=== PATIENT | female | born 1980 | race Caucasian/White ===

== ENCOUNTER 2016-06-14 14:06 | Emergency (ER) ==
[2016-06-14 14:18] VITALS: BP 160/96
[2016-06-14 14:28] LABS: URINE CULTURE PL NEEDED? NO; URINE SOURCE CLEAN CATCH
[2016-06-14 14:46] LABS: MANUAL DIFF NEEDED? NO
[2016-06-14 14:46] LABS: BILIRUBIN URINE NEGATIVE (NEGATIVE); BLOOD URINE 1+ (NEGATIVE); CLARITY SL. CLOUDY (CLEAR); COLOR YELLOW; GLUCOSE URINE NEGATIVE (NEGATIVE); LEUKOCYTES URINE TRACE (NEGATIVE); NITRITE URINE NEGATIVE (NEGATIVE); PROTEIN URINE TRACE mg/dL (NEGATIVE); SP GRAVITY URINE 1.005; UROBILINOGEN URINE NORMAL
[2016-06-14 14:49] LABS: URINE EPITHELIAL CELLS <10 /HPF (<10); URINE RBC <10 /HPF (<10); URINE WBC <10 /HPF (<10)
[2016-06-14 14:54] LABS: BASO% 0.1 % (0.0-0.8); EOS# 0.03 X1000 (0.0-0.7); EOS% 0.4 % (0.0-10.0); HEMATOCRIT 38.3 % (37.0-47.0); HEMOGLOBIN 13.2 g/dL (12.0-16.0); IMM GRAN# 0.02 X1000 (0.0-0.04); IMM GRAN% 0.3 % (0.0-0.5); LYMPH# 1.85 X1000 (1.2-3.4); LYMPH% 24.7 % (20.5-51.1); MCH 28.3 PG (27-31); MCHC 34.5 g/dL (33-37); MCV 82.2 FL (81-99); MONO# 0.69 X1000 (0.11-0.59); MONO% 9.2 % (1.7-9.3); MPV 9.1 FL (7.4-10.4); NEUT% 65.3 % (42.2-75.2); PLT 293 X1000 (130-400); RBC 4.66 XMIL (4.2-5.4)
[2016-06-14 15:01] LABS: AGAP 8; ALKALINE PHOSPHATASE 85 U/L (32-104); BUN 8 mg/dL (8-22); CALCIUM 9.6 mg/dL (8.8-10.2); CHLORIDE 104 mmol/L (98-107); COSMO 272; GOT 40 U/L (10-30); GPT 40 U/L (10-36); POTASSIUM 3.4 mmol/L (3.5-5.1); SODIUM 137 mmol/L (136-145); TCO2 25 mmol/L (25-35); TOTAL PROTEIN 6.7 g/dL (6.3-8.3)
--- NOTE | 2016-06-14 15:58 | PROVIDER DOCUMENTATION ---
HPI-Abdominal Pain/GI Problem - General Source: patient - History of Present Illness-ABD Nature of Presenting Problems: 35 yo F presents to the ER with complaint of RLQ abdominal pain, n/v, fever, and dysuria onset of this morning. Abdominal Pain Onset Location: reports: RLQ Onset/Duration: reports: this morning Associated Symptoms: reports: nausea, vomiting. denies: diarrhea <AshlyCira - Last Filed: 06/14/16 17:21> - History of Present Illness-ABD Nature of Presenting Problems: She c/o periumbilical pain with radiation into RLQ. This is the exact same complaint as in March and she had a CT scan that was negative. She did not her GI doctor after that visit. She sees a GI doctor in [place] but has recently moved here. Abdominal Pain Onset Location: reports: periumbilical Pain Radiation: reports: RLQ Quality of Pain: reports: aching, sharp, stabbing Severity in ED: reports: moderate Onset/Duration: reports: 3 days ago Timing: reports: still present Activities at Onset: reports: none Exposure to sick contacts?: No Associated Symptoms: reports: nausea Last BM: this morning Rectal Bleeding: reports: none # of Diarrhea Episodes: 0 Emesis Description: reports: none Bruising or Bleeding Gums?: No Similar Symptoms Previously?: Yes Recently seen or treated by another doctor?: No <Kassie Vera - Last Filed: 06/14/16 17:52> - General Chief Complaint: Abdominal Pain Stated Complaint: LOWER ABD PAIN,FEVER Time Seen by Provider: 06/14/16 17:08 Allergies/Adverse Reactions: Patient Allergies Allergy/AdvReac Type Severity Reaction Status Date / Time levofloxacin [From Levaquin] Allergy Severe RASH Verified 05/27/16 09:39 Home Medications: Home Medication List Medication Instructions Recorded Confirmed Last Taken Type Mesalamine [Pentasa] 1,000 mg PO 4XDAY 05/31/15 05/27/16 05/27/16 History Paroxetine HCl [Paxil] 40 mg PO DAILY 03/23/16 05/27/16 05/27/16 History Quetiapine Fumarate [Seroquel] 300 mg PO QHS 03/23/16 05/27/16 05/27/16 History Acetaminophen/Diphenhydramine 1 each PO Q6-8H PRN PRN #30 tablet 05/27/16 Unknown Rx [Percogesic 325-12.5 mg Tablet] Amoxicillin [Amoxil] 500 mg PO BID #10 capsule 05/27/16 Unknown Rx Benzocaine 20% Gel [Orajel Maximum 1 applicatn TOP 4XDAY PRN PRN #1 05/27/[address] 20% Gel] tube Acetaminophen with Codeine 1 each PO Q6H PRN PRN #12 tablet 06/14/16 Unknown Rx [Tylenol with Codeine #3] Ondansetron [Zofran] 4 mg PO Q6H PRN PRN #15 tablet 06/14/16 Unknown Rx Review of Systems - Adult - REVIEW OF SYSTEMS - ADULT Constitutional: reports: chills, fever Eyes: reports: no symptoms reported Ears, Nose, Mouth & Throat: reports: no symptoms reported Cardiovascular: denies: chest pain, palpitations Respiratory: denies: cough, shortness of breath Gastrointestinal: reports: abdominal pain, nausea, vomiting. denies: diarrhea Genitourinary: reports: dysuria. denies: flank pain Musculoskeletal: reports: no symptoms reported Integumentary: reports: no symptoms reported Neurological: reports: no symptoms reported Psychiatric: reports: no symptoms reported Endocrine: reports: no symptoms reported Hematologic/Lymphatic: reports: no symptoms reported Allergic/Immunologic: reports: no symptoms reported All Other Systems: Reviewed and Negative <Cira Limon - Last Filed: 06/14/16 17:21> Past History - Adult - PAST MEDICAL HISTORY-ADULT Review of Records: reports: Nursing Assessment Review, Medications Reviewed Cardiovascular: reports: HTN, other (irregular heart beat) Gastrointestinal: reports: Crohn's Neurological: reports: headaches/migraines - PRIOR SURGERIES/PROCEDURES Surgical/Procedure History: reports: cholecystectomy, , tonsillectomy - IMMUNIZATION STATUS Childhood Immunizations: See Nurse Assessment Flu Vaccine: See Nurse Assessment - FAMILY HISTORY Family History: reviewed, not pertinent <Cira Limon - Last Filed: 06/14/16 17:21> Physical Exam-General - PHYSICAL EXAM-ADULT Initial Vital Signs Reviewed: Yes - CONSTITUTIONAL General Appearance: appears well, alert, no apparent distress - EYES Eyes: PERRL/EOMI - HEAD, EARS, NOSE, MOUTH & THROAT HENMT: normocephalic/atraumatic - RESPIRATORY Respiratory: no respiratory distress - CARDIOVASCULAR Cardiovascular: normal peripheral pulses - GASTROINTESTINAL (ABDOMEN) Abdominal Exam: soft, abnormal bowel sounds (hyperactive), tenderness, obturator sign, psoas. negative: distended, guarding, rigid, hernia, mass, hepatomegaly, McBurney's point tenderness, Thrasher's sign - MUSCULOSKELETAL Back Exam: normal inspection Extremity: normal gait, normal inspection - SKIN Integumentary: normal color, normal turgor, warm/dry - NEUROLOGIC Neurologic: grossly normal - PSYCHIATRIC Psych/Mental Status: normal mood/affect, normal thought content, normal thought process, oriented x 3 <Kassie Vera - Last Filed: 06/14/16 17:52> Progress - XRAY 1 XRAY Study: Chest, Abdomen Impression: Normal (nad, per radiologist) <Cira Limon - Last Filed: 06/14/16 17:21> - PLAN OF CARE/RESULTS Progress/Plan/Lab Results: 1735-Discussed results/dx/tx/discharge and expressed the need to see a GI doctor for her chronic crohn's disease. Laboratory Tests 06/14/16 06/14/16 06/14/16 14:20 14:40 14:40 WBC 7.48 RBC 4.66 Hgb 13.2 Hct 38.3 MCV 82.2 MCH 28.3 MCHC 34.5 RDW Std Deviation 13.4 Plt Count 293 MPV 9.1 Immature Gran % (Auto) 0.3 Neut % (Auto) 65.3 Lymph % (Auto) 24.7 [place] % (Auto) 9.2 Eos % (Auto) 0.4 Baso % (Auto) 0.1 Immature Gran # (Auto) 0.02 Neut # (Auto) 4.88 Lymph # (Auto) 1.85 [place] # (Auto) 0.69 H Eos # (Auto) 0.03 Baso # (Auto) 0.01 Sodium 137 Potassium 3.4 L Chloride 104 Carbon Dioxide 25 Anion Gap 8 BUN 8 Creatinine 0.6 Estimated GFR/1.73 m2 > 60 BUN/Creatinine Ratio 13 Glucose 96 Calculated Osmolality 272 Calcium 9.6 Total Bilirubin 0.40 AST 40 H ALT 40 H Alkaline Phosphatase 85 Total Protein 6.7 Albumin 4.0 Globulin 3.0 Albumin/Globulin Ratio 1.0 Urine Source CLEAN CATCH Urine Color YELLOW Urine Clarity SL. CLOUDY A Urine pH 7.0 Ur Specific [place] 1.005 Urine Protein TRACE A Urine Ketones TRACE Urine Blood 1+ A Urine Nitrite NEGATIVE Urine Bilirubin NEGATIVE Urine Urobilinogen NORMAL Urine Microscopic RBC <10 Urine WBC TRACE A Urine Microscopic WBC <10 Ur Epithelial Cells <10 Urine Glucose NEGATIVE Orders Category Date Time Status FLAT/UPRIGHT ABD/1 VIEW CHEST [RAD] Stat Exams 06/14/16 16:23 Taken CBC WITH DIFF [HEME] Stat Lab 06/14/16 14:40 Completed COMPREHENSIVE METABOLIC PANEL [CHEM] Stat Lab 06/14/16 14:[address] W/POSS RFLX CULT [URINALYSIS] Stat Lab 06/14/16 14:20 Completed Ketorolac [Toradol] Med 06/14/16 17:26 Discontinued 60 mg IM NOW ONE Ondansetron Odt [Zofran Odt] Med 06/14/16 17:23 Discontinued 4 mg PO NOW ONE Vital Signs - 24 hr 06/14/16 14:12 Temperature 99.5 F Pulse Rate 91 H Respiratory 19 Rate Blood Pressure 160/96 O2 Sat by Pulse 98 Oximetry <Kassie Vera - Last Filed: 06/14/16 17:52> Departure <Cira Limon - Last Filed: 06/14/16 17:21> - Departure Time of Disposition Order: 17:39 Certified Medical Emergency: Emergent <Kassie Vera - Last Filed: 06/14/16 17:52> - Departure DIAGNOSIS: Abdominal pain of unknown etiology, Nausea Crohn disease Qualifiers: Gastrointestinal tract location: unspecified location Digestive disease complication type: unspecified complication Qualified Code(s): K50.919 - Crohn' s disease, unspecified, with unspecified complications Disposition: HOME 01 Condition: Good Additional Instructions: Follow up with gastroenterology. Take medications as prescribed. ED Follow Up Instructions: You have been treated by a care provider in the Emergency Department. These instructions are being provided to you so you can have an understanding of how to care for yourself upon discharge. Upon discharge from the Emergency Department, you are responsible for making arrangements for follow-up care by a physician of your choice. Take all prescribed medications as directed. Return to the Emergency Department immediately for any new or worsening symptoms. You may call the Physician Referral phone number at [phone] to obtain a list of Physicians who are taking new patients. Prescriptions: Acetaminophen with Codeine [Tylenol with Codeine #3] 1 each PO Q6H PRN PRN #12 tablet PRN Reason: Pain Ondansetron [Zofran] 4 mg PO Q6H PRN PRN #15 tablet PRN Reason: Nausea Referrals: None,PCP [Primary Care Provider] - Dangelo Thakkar MD [STAFF PHYSICIAN] - Attestation - Scribe Verification/Attestation Scribe:: Cira Limon Scribe documention review:: This chart was documented by a scribe and accurately reflects the service the provider performed and the decisions made by the provider. <Cira Limon - Last Filed: 06/14/16 17:21> - Physician/ KAVIN Attestation Patient care was provided by Advanced Practice Provider:: Yes Advanced Practice Provider:: Kassie Vera Advanced Practice Provider documentation review:: The Mid-level provider documentation, treatment plan and medical decision making was reviewed by the physician who agrees with all treatment and medical decision making by the MLP. <Kassie Vera - Last Filed: 06/14/16 17:52> Physician Attestation - Physician Attestation I, the provider, attest to the following statement:: Kassie Vera Physician documentation Attestation:: This documentation recorded by the scribe accurately reflects the service I personally performed and the decisions made by me. <Kassie Vera - Last Filed: 06/14/16 17:52>
[2016-06-14] MEDS ORDERED: ZOFRAN ODT PO ONE (17:23)
[2016-06-14] MEDS ORDERED: TORADOL IM ONE (17:26)
--- NOTE | 2016-06-14 18:53 | Diag Imaging Result Document ---
PROCEDURE NAME: FLAT/UPRIGHT ABD/1 VIEW CHEST - 06/14/2016 FLAT AND UPRIGHT ABDOMEN: There is no evidence of bowel obstruction. There has been cholecystectomy. There is no evidence of mass. The spleen is somewhat elongated measuring over 18 cm in superior inferior dimension. However, compared to the previous study of 05/31/2015 this has not changed significantly. IMPRESSION: No evidence of acute disease. PA CHEST: FINDINGS: The appearance of the chest has not changed significantly since 05/27/2016. The heart size and pulmonary vascularity are within normal limits. The lungs are clear. IMPRESSION: No acute disease.
== END 2016-06-14 17:52 | disposition home or self-care (01) ==
LOC: P.ED 14:06
DX: K50.90 Crohn's disease, unspecified, without complications (principal); R10.31 Right lower quadrant pain; R11.2 Nausea with vomiting, unspecified; R50.9 Fever, unspecified; R30.0 Dysuria; R10.33 Periumbilical pain; I10 Essential (primary) hypertension; Z79.899 Other long term (current) drug therapy
CPT/HCPCS: 74022; 80053; 81001; 85025; 96372; J1885